=== PATIENT | female | born 1995 | race Two or more races ===

== ENCOUNTER 2021-03-08 20:23 | Emergency (ER) | payer OTHER ==
[~2021-03-08] VITALS: Ht 167.6 cm; Wt 61.2 kg
[2021-03-08 20:23] VITALS: BP 109/77
[2021-03-08] MEDS ORDERED: NAPR500T6 PO (22:16)
== END 2021-03-08 23:06 | disposition home or self-care (01) ==
LOC: ER 20:35
DX: S20.212A Contusion of left front wall of thorax, initial encounter (principal); S50.812A Abrasion of left forearm, initial encounter; S40.212A Abrasion of left shoulder, initial encounter; V49.49XA Driver injured in collision with other motor vehicles in traffic accident, initial encounter; Y93.89 Activity, other specified; Y92.413 State road as the place of occurrence of the external cause; Y99.8 Other external cause status
CPT/HCPCS: 71045-TC; 73090-TC